=== PATIENT | female | born 1940 | race Caucasian/White ===

== ENCOUNTER 2018-07-21 13:58 | Outpatient (CLI) | payer MEDICARE, OTHER ==
[~2018-07-21 13:58] MED LIST: Gadobenate Dimeglumine 529 MG/1 ML (20ML VIAL) ONE
--- NOTE | 2018-07-21 16:54 | RAD ---
LUMBAR SPINE 07/21/18 Two views. HISTORY: Degenerative lumbar disc. Back pain. COMPARISON: 09/03/16. Postoperative changes are again noted with pedicle screws on the right at L4-5. Mild anterolisthesis at L4-5 is again seen and does not appear changed when compared to 09/03/16. Moderate degenerative changes. Mild disc narrowing at all levels. Facet sclerosis and hypertrophy. Sl ight curvature of the lumbar spine to the left with apex at L4-5 is unchanged. IMPRESSION: Postoperative and degenerative changes of the lumbar spine do not appear significantly changed when c ompared to the prior exam. POS: [facility]
--- NOTE | 2018-07-21 17:13 | MRI ---
MRI CERVICAL SPINE: 07/21/18 HISTORY: Cervical radiculopathy. Patient complaining of shoulder pain radiating into neck. Multiplanar and multisequence noncontrast enhanced MRI images cervical spine obtained. Comparison made to previous exam from 12/03/16. The spinal cord is unremarkable with no evidence of cord masses or lesions. C1-2: Unremarkable. C2-3: Unremarkable. C3-4: There is a mild broad based disc bulge. No significant degree of central stenosis seen. Moderat e to severe left and mild right sided C3-4 neural foraminal narrowing is seen due to uncovertebral os teophyte hypertrophy. C4-5: There is disc desiccation seen. There is a broad based disc osteophyte complex centrally compre ssing the thecal sac resulting in moderate degree of central stenosis. Moderate to severe right sided C4-5 neural foraminal narrowing is seen due to uncovertebral osteophyte hypertrophy. The left neural foramen is patent. C5-6: Disc desiccation seen. There is a broad based disc osteophyte complex centrally compressing the thecal sac. No significant degree of central stenosis seen. There is moderate to severe right sided neural foraminal narrowing. The left neural foramen is patent. C6-7: Disc desiccation seen. The central canal and neural foramen are patent. C7-T1: Unremarkable. IMPRESSION: Disc space height loss with disc desiccation and right sided neural foraminal narrowing at C4-5 and C 5-6. POS: [facility]
--- NOTE | 2018-07-21 17:14 | MRI ---
MRI LUMBAR SPINE WITH AND WITHOUT GADOLINIUM CONTRAST: Date: 07/21/18 HISTORY: Low back pain. Prior surgery. FINDINGS: Conus medullaris has a normal appearance. There is desiccation of all of the intervertebral discs. Ve rtebral body heights are maintained. T12-L1: Central canal and neural foramina are patent. L1-2: Minimal disc bulge. Osteophytosis of the facets. Central canal and neural foramina are patent. L2-3: Disc space narrowing with minimal degenerative retrolisthesis. Posterior disc bulge and circum ferential degenerative changes. Moderate stenosis of the central canal and left neural foramen. Sever e stenosis of the right neural foramen. L3-4: Posterior disc bulge and circumferential degenerative changes. Moderate stenosis of the centra l canal and each neural foramen. L4-5: Posterior operative hardware fixation. Minimal degenerative spondylolisthesis. Mild posterior disc bulge. Thecal sac is patent. Mild stenosis of each neural foramen. L5-S1: Osteophytosis of the facets. Thecal sac is patent. Mild stenosis of each neural foramen. IMPRESSION: Postoperative and degenerative changes of the lumbar spine as detailed above. Stenosis is most severe at the right L2-3 neural foramen. Clinical correlation regarding the right L2 dermatome is required. POS: [facility]
== END 2018-07-21 13:59 | disposition home or self-care (01) ==
LOC: BICMRI 13:58
PROVIDERS: ATTEND Neurological Surgery
DX: M51.36 Other intervertebral disc degeneration, lumbar region (principal); M47.816 Spondylosis without myelopathy or radiculopathy, lumbar region; M48.061 Spinal stenosis, lumbar region without neurogenic claudication; M50.121 Cervical disc disorder at C4-C5 level with radiculopathy; M48.02 Spinal stenosis, cervical region; Z98.890 Other specified postprocedural states
CPT/HCPCS: 72100; 72141; 72158; 82565; A9579